=== PATIENT | female | born 1960 | race Caucasian/White ===

== ENCOUNTER 2016-11-18 03:40 | Emergency (ER) | payer SELFPAY ==
[2016-11-18 03:47] VITALS: TEMP 98.6
[2016-11-18] MEDS ORDERED: FAMOTIDINE 20 MG/2 ML SDV IVP ONE (03:54)
[2016-11-18] MEDS ORDERED: NS 1,000 ML IV ONE (03:54)
[2016-11-18] MEDS ORDERED: methylPREDNISolone SOD SUCC 125 MG/2 ML VIAL IVP ONE (03:54)
--- NOTE | 2016-11-18 03:54 | EDPHY ---
H & P Stated Complaint: c/o facial swelling related to something she ate, uncertain of what HPI/ROS: HPI CHIEF COMPLAINT: Facial swelling, throat tightness, allergic reaction HISTORY OF PRESENT ILLNESS: this patient very pleasant 56-year-old female denies any significant medical history does not take any daily medications she presents emergency room with right upper lip swelling and a sensation that her throat is tight. She states this started around 6:00 p.m. or approximately 9 hours ago. She woke up approximately an hour ago or at 3:00 a.m. with worsening right upper lip swelling. No trouble swallowing and no trouble breathing. She denies nausea vomiting abdominal cramping diarrhea shortness of breath or chest pain. She states that she had wine and jalapeno nose this evening. She states she had a very similar episode of this but not as severe approximately a week ago again with wine And jalapenos. she presents emergency room at 4:00 a.m. with no trouble breathing no trouble swallowing and not drooling but does feel some tightness in her throat and upper lip right- sided swelling. No soft palate swelling, no rash. No pruritus. Denies neck pain or headache denies chest pain or shortness of breath. Symptoms been present since 6:00 p.m. however she feels are slightly worse this late evening. Past Medical History: No significant medical history Past Surgical History: no significant surgical history Social History: daily alcohol use, smokes occasionally tobacco or marijuana. Family History: Noncontributory ROS REVIEW OF SYSTEMS: A comprehensive 10 point review of systems is otherwise negative aside from elements mentioned in the history of present illness. Exam Constitutional appears well nontoxic, triage nursing summary reviewed, vital signs reviewed, awake/alert. Eyes normal conjunctivae and sclera, EOMI, PERRLA. HENT oropharynx: right upper lip swelling. It is edematous. The uvula is midline, no soft palate swelling, no signs of oropharyngeal swelling septal right upper lip, no Pedro's, no tongue swelling, no stridor, moist mucus membranes, no epistaxis, neck supple/ no meningismus, no raccoon eyes. Respiratory clear to auscultation bilaterally, normal breath sounds, no respiratory distress, no wheezing. Cardiovascular rate normal, regular rhythm, no murmur, no edema, distal pulses normal. Gastrointestinal soft, non-tender, no rebound, no guarding, normal bowel sounds, no distension, no pulsatile mass. Genitourinary no CVA tenderness. Musculoskeletal no midline vertebral tenderness, full range of motion, no calf swelling, no tenderness of extremities, no meningismus, good pulses, neurovascularly intact. Skin no rash specifically no urticaria,pink, warm, & dry, no rash, skin atraumatic. Neurologic awake, alert and oriented x 3, AAOx3, moves all 4 extremities equally, motor intact, sensory intact, CN II-XII intact, normal cerebellar, normal vision, normal speech. Psychiatric normal mood/affect. Heme/Lymph/Immune no lymphadenopathy. Differential Diagnosis: Includes but is not limited to in a particular order, severe allergy, anaphylaxis, food allergy. Medical Decision Making:plan for this patient IV establishment full seam stay stitcher, IV fluid bolus IV Solu-Medrol IV Benadryl IV Pepcid IM 0.3 mg epinephrine due to this sensation of throat tightness. Treat for severe allergic reaction. No evidence of anaphylactic shock at this time. Re-evaluation: [id number]: Re-evaluation at this time patient is feeling much better. She is requesting discharge. She has been monitored here for multiple hours. She has had no progression of symptoms. She understands watch closely for rebound reaction. This includes further facial swelling, trouble swallowing shortness of breath, nausea, vomiting, abdominal pain chest pain or shortness of breath. I have given her prescription for Benadryl, Zantac, prednisone and epinephrine pen for the next 3 days. She understands return immediately to emergency room if she develops any further symptoms. Source: Patient - Medical/Surgical History Hx Asthma: No Hx Chronic Respiratory Disease: No Hx Diabetes: No Hx Cardiac Disease: No Hx Renal Disease: No Hx Cirrhosis: No Hx Alcoholism: No Hx HIV/AIDS: No Hx Splenectomy or Spleen Trauma: No Other PMH: L acl surg, c section - Social History Smoking Status: Current some day smoker Constitutional: Initial Vital Signs Temperature (C) 37 C 11/18/16 03:44 Heart Rate 76 11/18/16 03:44 Respiratory Rate 16 11/18/16 03:44 Blood Pressure 139/81 H 11/18/16 03:44 O2 Sat (%) 96 11/18/16 03:44 O2 Delivery Mode Room Air Allergies/Adverse Reactions: No Known Allergies Allergy (Unverified 11/18/16 03:47) Home Medications: Medication Instructions Recorded EPINEPHrine [Epipen 0.3 MG] 0.3 mg IM ONCE #2 syr 11/18/16 Ranitidine HCl [Zantac] 150 mg PO DAILY #3 tablet 11/18/16 Zyrtec 11/18/16 diphenhydrAMINE [Benadryl 25 MG 25 mg PO BID #6 tab 11/18/16 (*)] predniSONE 60 mg PO DAILY #9 tab 11/18/16 Medical Decision Making - Data Points Medications Given: Discontinued Medications Diphenhydramine HCl (Benadryl Injection) 25 mg IVP EDNOW ONE Stop: 11/18/16 03:55 Last Admin: 11/18/16 04:06 Dose: 25 mg Epinephrine HCl (Epinephrine) 0.3 mg IM EDNOW ONE Stop: 11/18/16 03:56 Last Admin: 11/18/16 04:00 Dose: 0.3 mg Famotidine (Pepcid) 20 mg IVP EDNOW ONE Stop: 11/18/16 03:55 Last Admin: 11/18/16 04:06 Dose: 20 mg Sodium Chloride (Ns) 1,000 mls @ 0 mls/hr IV ONCE ONE; Wide Open PRN Reason: Protocol Stop: 11/18/16 03:55 Last Admin: 11/18/16 04:07 Dose: 1,000 mls Methylprednisolone Sodium Succinate (Solu-Medrol) 125 mg IVP EDNOW ONE Stop: 11/18/16 03:55 Last Admin: 11/18/16 04:06 Dose: 125 mg Departure - Departure Disposition: Home, Routine, Self-Care Clinical Impression: Allergic reaction Qualifiers: Encounter type: initial encounter Qualified Code(s): T78.40XA - Allergy, unspecified, initial encounter Condition: Good Instructions: Anaphylaxis (ED), Allergies (ED) Additional Instructions: 1. return to the emergency room immediately if he develops worsening symptoms of allergic reaction this includes trouble swallowing, trouble breathing, nausea , vomiting, abdominal cramping, shortness of breath, facial swelling or oropharyngeal swelling. 2. Please follow up with your primary care doctor and personnel interviewer when he returned home. 3. Take Benadryl for next 3 days, prednisone for the next 3 days, Zantac for the next 3 days. He also been prescribed an epinephrine pen. Use this severe having severe allergic reaction. Referrals: NONE *PRIMARY CARE P,. [Primary Care Provider] - As per Instructions Prescriptions: diphenhydrAMINE [Benadryl 25 MG (*)] 25 mg PO BID #6 tab EPINEPHrine [Epipen 0.3 MG] 0.3 mg IM ONCE #2 syr predniSONE 60 mg PO DAILY #9 tab Ranitidine HCl [Zantac] 150 mg PO DAILY #3 tablet
[2016-11-18 05:48] VITALS: BP 131/75; PULSE 75; RESP 16; O2SAT 92
== END 2016-11-18 05:48 | disposition home or self-care (01) ==
DX: T78.40XA Allergy, unspecified, initial encounter (principal); E86.9 Volume depletion, unspecified; F17.200 Nicotine dependence, unspecified, uncomplicated
CPT/HCPCS: 96374; J0171; J1200